=== PATIENT | male | born 1970 | race Caucasian/White ===

== ENCOUNTER 2019-02-14 10:38 | Day surgery (SDC) | payer OTHER ==
[~2019-02-14] VITALS: Ht 179.1 cm; Wt 97.0 kg
[2019-02-14] VITALS (15 sets, daily range): BP systolic 109–145; BP diastolic 67–84; PULSE 52–84; RESP 16–18; Ht 179.1 cm; Wt 97.0 kg
[~2019-02-14 10:38] MED LIST: CEFAZOLIN 2 GM/50 ML (PMX) 50 ML IVPB SCH; DESFLURANE 15 MIN ONE; SOD CHLORIDE 0.9% 1,000 ML IV SCH
[2019-02-14] MEDS ORDERED: BUPIVACAINE 0.25%/EPI (SDV) 30 ML INJ ONE (12:25)
--- NOTE | 2019-02-14 12:28 | PREAC ---
Date/Time of Note Date/Time of Note DATE: 02/14/19 TIME: 12:27 Anesthesia Eval and Record Evaluation Time Pre-Procedure Interview DATE: 02/14/19 TIME: 12:27 Age 48 Sex male NPO: 8 hrs Preoperative diagnosis Ventral and Umbilical Hernia Planned procedure Hernia Repair Past Medical History Past Medical History: None Surgery & Anesthesia Issues No known issue Meds Anticoagulation: No Beta Liz within 24 hr: No Reason Beta Liz not given: Pt. not on B-Liz No Active Prescriptions or Reported Meds Current Medications Sodium Chloride 1,000 ml @ 75 mls/hr [id number] IV Last administered on 02/14/19at 11:10; Admin Dose 75 MLS/HR; Start 02/14/19 at 06:00; Stop 02/14/19 at 19:19 Cefazolin Sodium/ Dextrose 50 ml @ 100 mls/hr PREOP IVPB ; Start 02/14/19 at 06:00; Stop 02/14/19 at 16:00 Meds reviewed: Yes Allergies Coded Allergies: No Known Allergy (Unverified , 02/14/19) Allergies Reviewed: Yes Labs/Studies Labs Reviewed: Reviewed by anesthesiologist test: N/A Pre-procedure Exam Last vitals Vital Signs Date Temp Pulse Resp B/P (MAP) Pulse Ox O2 O2 Flow FiO2 Time Delivery Rate 02/14/19 97.5 64 16 136/81 97 Room Air 11:19 (99) Airway: Adequate mouth opening Mallampati: Mallampati III Teeth: Normal Lung: Normal Heart: Normal ASA Physical Status ASA physical status: 2 Emergency: None Planned Anesthetic General/MAC: ETT Pre-operative Attestations Prior to commencing anesthesia and surgery, the patient was re-evaluated, there was verification of: *The patient's identity *The results of appropriate recent lab work and preoperative vital signs *The above evaluation not changing prior to induction *Anesthetic plan, risk benefits, alternative and complications discussed with patient/family; questions answered; patient/family understands, accepts and wishes to proceed. SHON VERAS MD February 14, 2019 12:28
[2019-02-14] MEDS ORDERED: SUCCINYLCHOLINE CHLORIDE 100 MG/5 ML SYG IV ONE (12:32)
[2019-02-14] MEDS ORDERED: PROPOFOL 20 ML ONE (12:32)
[2019-02-14] MEDS ORDERED: ROCURONIUM 50 MG INJ ONE (12:32)
[2019-02-14] MEDS ORDERED: MIDAZOLAM 1 MG/ML 2 ML INJ ONE (12:32)
[2019-02-14] MEDS ORDERED: ONDANSETRON 4 MG INJ ONE (12:33)
[2019-02-14] MEDS ORDERED: KETOROLAC 30 MG INJ ONE (12:33)
[2019-02-14] MEDS ORDERED: CEFAZOLIN 1 GM INJ ONE (12:33)
--- NOTE | 2019-02-14 13:08 | HPN ---
Date/Time of Note Date/Time of Note DATE: 02/14/19 TIME: 13:08 Interval H&P Admission Note Pt. seen H&P reviewed: No system changes DAVIDSON URIARTE MD February 14, 2019 13:08
[2019-02-14] MEDS ORDERED: GLYCOPYRROLATE 0.4 MG INJ ONE (13:31)
[2019-02-14] MEDS ORDERED: NEOSTIGMINE 3 MG/3 ML SYRINGE ONE (13:31)
[2019-02-14] MEDS ORDERED: POLYMYXIN/BACITRACIN 1L IRRIG ONE (13:40)
--- NOTE | 2019-02-14 14:12 | OPR ---
Date/Time of Note Date/Time of Note DATE: 02/14/19 TIME: 14:07 Operative Report Procedure Date: February 14, 2019 Preoperative Diagnosis Recurrent ventral/umbilical hernia Postoperative Diagnosis Recurrent ventral/umbilical hernia Operation/Procedure Performed Open repair of recurrent ventral/umbilical hernia with mesh Surgeon see signature line Director [employer] None Anesthesia Type: general Anesthesiologist: SHON VERAS MD Estimated Blood Loss: minimal Transfusion none Specimen Hernia sac Grafts/Implants Ethicon proceed ventral hernia patch size large Complications none Pt Condition Post Procedure: stable Disposition: PACU Indications The patient is a overweight 48-year-old male with history of prior open repair of a ventral/umbilical hernia who presented to the office with a painful recurrent bulge of the ventral abdominal wall involving the umbilicus. He had clinical signs and symptoms of a ventral/umbilical hernia. He was scheduled for elective repair to prevent sequelae of hernia disease which include, but are not limited to: Incarceration and strangulation. All risks and benefits of the procedure including, but not limited to: Wound infection, excessive bleeding, postoperative seroma/hematoma formation, injury to intra-abdominal organs, hernia recurrence, chronic pain, etc. were all explained to the patient in full detail. Patient fully understood and wished to proceed with the procedure. Informed consent was obtained. Procedure Description Patient was brought to the operating room and placed supine on the operating table. Bilateral sequential compression devices were placed on both lower e xtremities. A dose of broad-spectrum perioperative intravenous antibiotics was given. After the induction of smooth general anesthesia the patient's abdomen was prepped and draped in standard surgical fashion. After performance of the surgical timeout 0.25% Marcaine with epinephrine was injected around the area of the incision. An infraumbilical semicircular incision was then made using a 15 blade scalpel. It was carried down through the skin and the dermis. Blunt dissection was then done using Virginia clamps to the level of the anterior rectus fascia. There was some fibrosis and scarring of the subcutaneous tissues down to the level of the anterior rectus fascia from prior surgery. The umbilicus was then encircled using a Virginia clamp. A fat-containing umbilical/ventral hernia was identified. The umbilicus was then transected at its base and the sac dissected off of the umbilicus. The sac was opened and omentum was found within the hernia defect. The omentum was reduced. The sac was excised and pas sed off the field specimen. Hernia defect measured approximately 2 cm in maximal dimension. A large Ethicon proceed ventral hernia patch was then used to repair the hernia defect. Its tails were secured to the fascia using interrupted 2-0 Novafil sutures. The mesh was soaked in antibiotic irrigation prior to insertion into the field. With the repair complete it was inspected and noted to be tension-free and hemostatic. The wound cavity was then irrigated with more antibiotic irrigation. The fascia was then reapproximated over the mesh using a #1 PDS suture in [id number] fashion. The umbilicus was then tacked back down to the fascia using interrupted 3-0 Vicryl suture. Incision was then closed in layers using interrupted 3-0 Vicryl sutures for the dermal layer. The skin was reapproximated using a running 4-0 Monocryl suture in subcuticular fashion. Further local anesthesia was applied around the skin of the incision site. Incision was cleaned and Dermabond was applied as well as an abdominal binder. The patient was awoken from anesthesia and transported to the recovery room in stable condition. All counts were correct at the end of the case 2. DAVIDSON URIARTE MD February 14, 2019 14:12
[2019-02-14] MEDS ORDERED: IBUPROFEN 600 MG TAB PO PRN (14:30)
[2019-02-14] MEDS ORDERED: HYDROmorphONE 1 MG/5 ML IV SYRINGE IV PRN (14:30)
[2019-02-14] MEDS ORDERED: ONDANSETRON 4 MG INJ IV PRN ×2 (14:30)
[2019-02-14] MEDS ORDERED: OXYCODONE/ACETAMINOPHEN (5/325) TAB PO PRN (14:30)
[2019-02-14] MEDS ORDERED: HYDROCODONE/APAP (5/325) TAB PO PRN ×2 (14:30)
[2019-02-14] MEDS ORDERED: KETOROLAC 30 MG INJ IV PRN (14:30)
[2019-02-14] MEDS ORDERED: morphine 2 MG INJ IV PRN (14:30)
[2019-02-14] MEDS ORDERED: MEPERIDINE 25 MG INJ IV PRN (14:30)
--- NOTE | 2019-02-14 14:31 | PAC ---
Date/Time of Note Date/Time of Note DATE: 02/14/19 TIME: 14:31 Post-Anesthesia Notes Post-Anesthesia Note Last documented vital signs Vital Signs Date Temp Pulse Resp B/P (MAP) Pulse Ox O2 O2 Flow FiO2 Time Delivery Rate 02/14/19 97.5 64 16 136/81 97 Room Air 11:19 (99) Activity: WNL Respiratory function: WNL Cardiovascular function: WNL Mental status: Baseline Pain reasonably controlled: Yes Hydration appropriate: Yes Nausea/Vomiting absent: Yes SHON VERAS MD February 14, 2019 14:31
== END 2019-02-14 16:13 | disposition home or self-care (01) ==
LOC: SDS 10:38
PROVIDERS: ATTEND Surgery
DX: K42.9 Umbilical hernia without obstruction or gangrene (principal)
CPT/HCPCS: 49585; 88302; C1781; J0690; J1885; J2175; J2250; J2405; J2710; J3010; Z7512; Z7610